=== PATIENT | male | born 1975 | race Caucasian/White ===

== ENCOUNTER 2016-12-09 19:38 | Emergency (ER) | payer SELFPAY ==
[~2016-12-09] VITALS: Ht 175.3 cm; Wt 63.6 kg
[~2016-12-09 19:38] MED LIST: NO HOME MEDICATIONS; TORADOL10 MG PO; VALIUM5 MG PO
[2016-12-09 20:34] LABS: HEMATOCRIT 39.3 % (38.0-50.0); MCH 29.6 PG (29.0-34.0); MCHC 34.6 G/DL (30.0-36.0); MCV 85.4 FL (86-99); MEAN PLAT.VOLUME 8.8 uM^3 (9.0-12.4); PLATELET COUNT 181 K/uL (156-360); RBC DIS.WIDTH-CV 12.8 % (11.8-14.6); RBC DIS.WIDTH-SD 39.5 % (39-53); WHITE BLOOD COUNT 10.3 K/uL (4.1-10.2)
[2016-12-09 20:45] LABS: CHLORIDE 108 mEq/L (99-109); POTASSIUM 4.3 mEq/L (3.7-5.4); SODIUM 140 mEq/L (136-147)
[2016-12-09 20:47] LABS: GLUCOSE 118 mg/dL (70-99)
[2016-12-09 20:48] LABS: ANION GAP 9 MEQ/L (2-14)
[2016-12-09 20:49] LABS: TOTAL BILIRUBIN 0.8 mg/dL (0.0-1.0)
[2016-12-09 20:50] LABS: ALKALINE PHOSPHATASE 83 IU/L (3-129)
[2016-12-09 20:51] LABS: GFR ESTIMATE (CALCULATED) > 59 mL/min/
[2016-12-09 20:52] LABS: UREA NITROGEN (BUN) 12 mg/dL (9-23)
[2016-12-09 20:54] LABS: LIPASE 36 U/L (1.0-51.0)
[2016-12-09 23:09] LABS: INFLUENZA A VIRAL ANTIGEN NEGATIVE; INFLUENZA B VIRAL ANTIGEN NEGATIVE
[2016-12-09] MEDS ORDERED: ZOFRAN8 MG PO (23:17)
[2016-12-09 23:46] VITALS: BP 121/66
== END 2016-12-09 23:48 | disposition home or self-care (01) ==
LOC: EME → EDBD 19:38 → EME 23:48
PROVIDERS: Emergency Medicine
DX: R11.2 Nausea with vomiting, unspecified (principal); B34.9 Viral infection, unspecified; R51 Headache; R42 Dizziness and giddiness; F17.200 Nicotine dependence, unspecified, uncomplicated
CPT/HCPCS: 80053; 81003; 83690; 85027; 87502; 99281; 99285; J0780; J2405; J7030